=== PATIENT | male | born 1940 | race Caucasian/White ===

== ENCOUNTER → 2021-11-25 | Outpatient (CLI) | payer MEDICARE ==
--- NOTE | 2021-11-25 17:29 | KCIC ---
XR LUMBAR SPINE 4+V History: Low back pain. Prior lumbar fusion 1968. Comparison: None. Technique: 5 views of the lumbar spine. Findings: There is transitional anatomy with hypoplastic riblets at what is defined as the L1 vertebral body an d 6 lumbar vertebral segments. Partial sacralization of the transverse processes of L6. Rudimentary L 6-S1 disc. There is no evidence of fracture. No destructive osseous lesions. Mild levoconvex curvature. No spondylolisthesis. Suárez lumbar facet hypertrophy. Close apposition of the spinous processes throughout the lumbar spine. Mild disc space narrowing throughout the lumbar spine, moderate at L5-L6. Multilevel marginal osteoph ytes. Calcification of the aorta. Sacroiliac joints are unremarkable. IMPRESSION: 1. 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 No acute findings. If there is concern for radiculopathy, recommend MRI. 2. Transitional lumbosacral anatomy. Electronically signed by: Benny Benito MD (11/25/2021 5:26 PM) [id number]
== END ==
LOC: KCIC 10:41
PROVIDERS: ATTEND Family Medicine
DX: M47.816 Spondylosis without myelopathy or radiculopathy, lumbar region (principal); M51.36 Other intervertebral disc degeneration, lumbar region; M48.061 Spinal stenosis, lumbar region without neurogenic claudication; M25.78 Osteophyte, vertebrae
CPT/HCPCS: 72110